=== PATIENT | male | born 1995 | race Caucasian/White ===

== ENCOUNTER 2020-12-07 18:59 | Emergency (ER) | payer SELFPAY ==
[2020-12-07 19:27] LABS: HEMOGLOBIN 15.6 gm/dl (14.0-17.5); RED BLOOD COUNT 5.1 M/UL (4.20-5.50); WHITE BLOOD COUNT 14.3 K/UL (4.5-11.0)
[2020-12-07 19:59] LABS: BUN/CREATININE RATIO 8 (0-10)
== END 2020-12-07 20:59 | disposition home or self-care (01) ==
LOC: ER1 18:59
PROVIDERS: Preventive Medicine Occupational Medicine
DX: R00.2 Palpitations (principal); F17.290 Nicotine dependence, other tobacco product, uncomplicated
CPT/HCPCS: 71045; 80053; 82550; 82553; 83874; 84484; 85025; 93005; 99285

== ENCOUNTER 2021-01-23 13:52 | Emergency (ER) | payer OTHER ==
[2021-01-23 14:32] LABS: HEMOGLOBIN 16.6 gm/dl (14.0-17.5); RED BLOOD COUNT 5.41 M/UL (4.20-5.50); WHITE BLOOD COUNT 12.8 K/UL (4.5-11.0)
[2021-01-23 15:04] LABS: BUN/CREATININE RATIO 12 (0-10)
== END 2021-01-23 16:48 | disposition home or self-care (01) ==
LOC: ER1 13:52
PROVIDERS: Physician Assistant Medical
DX: F41.0 Panic disorder [episodic paroxysmal anxiety] (principal); F17.200 Nicotine dependence, unspecified, uncomplicated; G47.00 Insomnia, unspecified; R53.1 Weakness; Z79.01 Long term (current) use of anticoagulants; Z88.8 Allergy status to other drugs, medicaments and biological substances
CPT/HCPCS: 71045; 80053; 81001; 82550; 82553; 83605; 83874; 84439; 84443; 84484; 85025; 85379; 85610; 93005; 99285; J1650; J1940; J2185; Q0177